=== PATIENT | male | born 1965 | race Caucasian/White ===

== ENCOUNTER 2020-11-23 08:28 | Inpatient (IN) | payer OTHER ==
[~2020-11-23] VITALS: Ht 180.3 cm; Wt 126.2 kg
[2020-11-23 09:49] LABS: BASOPHIL 0.5 % (0-2); EOSINOPHIL 0 % (0-5); HGB 17.6 g/dl (13.2-18.0); LYMPHOCYTE 7.8 % (15-48); MCH 30.1 pg (25.0-31.0); MCHC 33.8 g/dL (32.0-36.0); MCV 88.9 fL (78.0-100.0); MONOCYTE 7.7 % (0-12); MPV 10.2 fL (6.0-9.5); NEUTROPHIL 81.3 % (41-80); NRBC 0; PLT 281 K/uL (150-400); RBC 5.85 M/uL (4.70-6.00); RDW 12.8 % (11.5-14.0); WBC 9.9 K/uL (4.0-10.5)
[2020-11-23 10:14] LABS: C-REACTIVE PROTEIN 10.7 mg/dL (<=0.90); MAGNESIUM 2.2 mg/dL (1.8-2.4)
[2020-11-23 12:13] LABS: ALBUMIN 3.3 g/dL (3.4-5.0); BILIRUBIN - TOTAL 0.6 mg/dL (0.2-1.0); BUN/CREAT RATIO (CALC) 20.2 RATIO; CREATININE 1.14 mg/dL (0.67-1.17); GLOBULIN (CALCULATION) 4.1 g/dL; POTASSIUM 3.9 mmol/L (3.5-5.1); TOTAL PROTEIN 7.4 g/dL (6.4-8.2)
[2020-11-23] MEDS ORDERED: SYNTHROID25 MCG PO (17:51)
[2020-11-23] MEDS ORDERED: SINGULAIR10 MG PO (17:51)
[2020-11-23] MEDS ORDERED: OMEPRAZOLE 20MG20 MG PO (17:52)
[2020-11-23] MEDS ORDERED: ZYRTEC10 M3 PO (17:52)
[2020-11-23] MEDS ORDERED: PRINIVIL10 MG PO (17:53)
[2020-11-23] MEDS ORDERED: RELAFEN750 MG PO (17:54)
[2020-11-23] MEDS ORDERED: IBUPROFEN800 MG PO (17:55)
[2020-11-24 06:15] LABS: BASOPHIL 0.7 % (0-2); EOSINOPHIL 0 % (0-5); HCT 47.6 % (42.0-52.0); HGB 15.8 g/dl (13.2-18.0); LYMPHOCYTE 9.5 % (15-48); MCH 29.9 pg (25.0-31.0); MCHC 33.2 g/dL (32.0-36.0); MCV 90.2 fL (78.0-100.0); MONOCYTE 6.6 % (0-12); MPV 9.8 fL (6.0-9.5); NEUTROPHIL 78.8 % (41-80); NRBC 0; PLT 292 K/uL (150-400); RBC 5.28 M/uL (4.70-6.00); WBC 10.7 K/uL (4.0-10.5)
[2020-11-24 06:39] LABS: BUN/CREAT RATIO (CALC) 22.1 RATIO; C-REACTIVE PROTEIN 13.6 mg/dL (<=0.90); CREATININE 1.04 mg/dL (0.67-1.17); POTASSIUM 4.1 mmol/L (3.5-5.1)
--- NOTE | 2020-11-24 15:08 | NUR ---
11/24/20 Discharge is anticipated for 11/25/20. Please call Vilma at [facility], [phone], to inform her patient's liter flow and time of discharge. - Report goven to [facility] charge
[2020-11-27 07:34] LABS: BASOPHIL 0.2 % (0-2); EOSINOPHIL 0.1 % (0-5); HCT 49.8 % (42.0-52.0); HGB 16.8 g/dl (13.2-18.0); LYMPHOCYTE 11.1 % (15-48); MCH 30.3 pg (25.0-31.0); MCHC 33.7 g/dL (32.0-36.0); MCV 89.7 fL (78.0-100.0); MONOCYTE 4.5 % (0-12); MPV 10.5 fL (6.0-9.5); NEUTROPHIL 73.6 % (41-80); NRBC 0; PLT 446 K/uL (150-400); RBC 5.55 M/uL (4.70-6.00); RDW 13.1 % (11.5-14.0); WBC 14.3 K/uL (4.0-10.5)
[2020-11-27 07:52] LABS: ALBUMIN 2.9 g/dL (3.4-5.0); BILIRUBIN - TOTAL 0.6 mg/dL (0.2-1.0); BUN/CREAT RATIO (CALC) 27.1 RATIO; CREATININE 1.07 mg/dL (0.67-1.17); GLOBULIN (CALCULATION) 4.7 g/dL; POTASSIUM 4.3 mmol/L (3.5-5.1); TOTAL PROTEIN 7.6 g/dL (6.4-8.2)
[2020-11-27] MEDS ORDERED: DEXAMETHASONE 2M2 MG PO ×2 (11:36→12:47)
[2020-11-27] MEDS ORDERED: ROBITUSSIN W/COD5 ML PO (12:47)
--- NOTE | 2020-11-27 14:18 | NUR ---
11/27/20 A referral was made to [facility] for 02 per patient choice.
== END 2020-11-27 14:02 | disposition home or self-care (01) | DRG 177 ==
LOC: FER 08:28 → FMS 14:38
PROVIDERS: Emergency Medicine; ADMIT Allergy & Immunology Allergy
PROC: XW033E5 Introduction of Remdesivir Anti-infective into Peripheral Vein, Percutaneous Approach, New Technology Group 5 (ICD-10-PCS; principal; 2020-11-23)
PROC: 8E0ZXY6 Isolation (ICD-10-PCS; 2020-11-23)
PROC: XW0DXM6 Introduction of Baricitinib into Mouth and Pharynx, External Approach, New Technology Group 6 (ICD-10-PCS; 2020-11-24)
DX: U07.1 COVID-19 (principal); J12.82 Pneumonia due to coronavirus disease 2019; J96.01 Acute respiratory failure with hypoxia; J15.9 Unspecified bacterial pneumonia; I10 Essential (primary) hypertension; J45.20 Mild intermittent asthma, uncomplicated; E86.0 Dehydration; E03.9 Hypothyroidism, unspecified; N52.9 Male erectile dysfunction, unspecified; M19.90 Unspecified osteoarthritis, unspecified site; Z79.890 Hormone replacement therapy; Z79.899 Other long term (current) drug therapy; Z79.51 Long term (current) use of inhaled steroids; Z98.890 Other specified postprocedural states
CPT/HCPCS: 36415; 36600; 71275; 80048; 80053; 82728; 82803; 83605; 83615; 83735; 84145; 84484; 85025; 86140; 93005; 94010; 94640; 94760; 94762; C9399; J1100; J1650; J7030; J7050; J8540; U0002